=== PATIENT | male | born 1995 | race Caucasian/White ===

== ENCOUNTER 2020-03-14 19:16 | Emergency (ER) | payer OTHER ==
[2020-03-14 19:32] VITALS: O2SAT 98
--- NOTE | 2020-03-14 19:39 | ED.PDOC ---
History of Present Illness - General Chief Complaint: Fever Stated Complaint: covid symptoms Time Seen by Provider: 03/14/20 19:33 Source: patient, RN notes reviewed, Vital Signs reviewed Exam Limitations: no limitations - History of Present Illness Initial Comments: Patient is a 24-year-old white male who presents with complaints of loss of sense of taste and smell. This is been ongoing for 1 week. Patient denies any fever or chills. Patient denies body aches. Nothing makes his symptoms better or worse. Patient denies any pain. Timing/Duration: 1 week Severity: moderate Improving Factors: nothing Worsening Factors: nothing Associated Symptoms: denies symptoms Allergies/Adverse Reactions: Allergies NO KNOWN ALLERGY Allergy (Verified 07/01/13 17:51) Review of Systems - Review of Systems Constitutional: States: no symptoms reported, see HPI. Denies: chills, fever, malaise, weakness EENTM: States: see HPI, other - Loss of taste and smell. Denies: eye pain, blurred vision, double vision Respiratory: States: no symptoms reported. Denies: cough, orthopnea, short of breath, stridor, wheezing Cardiology: States: no symptoms reported. Denies: chest pain, palpitations, syncope Gastrointestinal/Abdominal: States: no symptoms reported. Denies: abdominal pain, diarrhea, nausea, vomiting Genitourinary: States: no symptoms reported. Denies: dysuria, frequency Musculoskeletal: States: no symptoms reported. Denies: back pain, joint pain, joint swelling, neck pain Skin: States: no symptoms reported. Denies: change in color, rash Neurological: States: no symptoms reported. Denies: tingling, tremors, weakness Endocrine: States: no symptoms reported. Denies: increased hunger, increased thirst, increased urine Hematologic/Lymphatic: States: no symptoms reported. Denies: blood clots, easy bleeding All other Systems: Reviewed and Negative Past Medical History (General) - Patient Medical History Hx Seizures: No Hx Asthma: No Hx of COPD: No Hx Cardiac Disorders: No Hx Congestive Heart Failure: No Hx Pacemaker: No Hx Hypertension: No Hx Diabetes: No Hx Gastroesophageal Reflux: No Hx Renal Disease: No Hx MRSA: Yes - Abscess 2011 MRSA Source:: Wound - Vaccination History Hx Tetanus, Diphtheria Vaccination: Yes Hx Influenza Vaccination: No Hx Pneumococcal Vaccination: No Immunizations Up to Date: Yes - Social History Hx Tobacco Use: No Hx Chewing Tobacco Use: No Hx Alcohol Use: Yes Hx Substance Use: No Hx Depression: No Feels Threatened In Home Enviroment: No Feels Threatened In a Relationship: No Hx Physical Abuse: No Hx Emotional Abuse: No Hx Suspected Abuse: No - Female History Patient is a Female of Child Bearing Age (10 -59 yrs old): No Family Medical History - Family History Mother Family History: Unknown Physical Exam - Physical Exam General Appearance: Alert, Comfortable, No apparent distress, Well Developed, Well Groomed, Well Hydrated, Well Nourished, Other - Polite Eye Exam: bilateral normal Ears, Nose, Throat: hearing grossly normal, normal ENT inspection, normal pharynx Neck: non-tender, full range of motion, supple Respiratory: chest non-tender, lungs clear, normal breath sounds, no respiratory distress, no accessory muscle use Cardiovascular/Chest: normal peripheral pulses, regular rate, rhythm, no edema, no gallop, no JVD, no murmur Peripheral Pulses: radial,right: 2+, radial,left: 2+ Gastrointestinal/Abdominal: normal bowel sounds, non tender, soft, no organomegaly, no pulsatile mass Back Exam: normal inspection, no CVA tenderness, no vertebral tenderness Extremity: normal range of motion, non-tender, normal inspection Neurologic: tread cutter II-XII nml as tested, no motor/sensory deficits, alert, normal mood/affect, oriented x 3 Skin Exam: normal color, warm/dry Lymphatic: no adenopathy Progress - Progress Progress: Differential diagnosis: Viral URI, COVID-19, sinusitis, CVA among others. 03/14/20 19:42 Patient was swabbed for Covid and respiratory illness. This is a PCR test the takes 2-1/2 hours. Patient was discharged home with follow-up with results later. I discussed this plan of care with the patient and he voices understanding and agreement with the plan of care. Arvind Gallo M.D. #[id number] 03/15/20 01:28 PCR test shows positive for Covid Arvind Gallo M.D. #[id number] - Results/Orders Results/Orders: COVID-19: Positive Departure - Departure Clinical Impression: Anosmia, Ageusia, COVID-19 Time of Disposition: 19:49 Disposition: Discharge to Home or Self Care Condition: Excellent Departure Forms: ED Discharge - Pt. Copy, Patient Portal Self Enrollment Instructions: Coronavirus Disease 2019 (COVID-19) Tests Diet: resume usual diet Activity: increase activity as tolerated Referrals: Peña Reinoso III, MD [Primary Care Provider] - 1 Week
[2020-03-14 19:53] VITALS: BP 136/58; TEMP 99
== END 2020-03-14 19:53 | disposition home or self-care (01) ==
LOC: ER 19:16
DX: U07.1 COVID-19 (principal)